=== PATIENT | male | born 1985 | race Caucasian/White ===

== ENCOUNTER 2020-09-02 08:00 | Emergency (ER) | payer OTHER ==
[~2020-09-02] VITALS: Ht 180.3 cm; Wt 104.3 kg
--- NOTE | 2020-09-02 08:04 | NUR ---
[facility] AND [employer] C/O L WRIST PAIN. TO ER BED 11, HOOKED TO MONITOR. AWAITING MD CARLSON
--- NOTE | 2020-09-02 08:06 | NUR ---
DR MEDELLIN AT BEDSIDE
--- NOTE | 2020-09-02 09:01 | NUR ---
Patient discharged in custody of [employer] Officers Nico and Floyd of [place] in stable condition. Written and verbal after care instructions given. Patient and [employer] Officers verbalizes understanding of instruction.
[2020-09-02 09:03] VITALS: BP 127/80
== END 2020-09-02 09:03 ==
LOC: ER 08:03
DX: S62.390A Other fracture of second metacarpal bone, right hand, initial encounter for closed fracture (principal); I10 Essential (primary) hypertension; F10.10 Alcohol abuse, uncomplicated; F17.200 Nicotine dependence, unspecified, uncomplicated; Z90.89 Acquired absence of other organs; Z98.890 Other specified postprocedural states; Z60.2 Problems related to living alone; Y90.9 Presence of alcohol in blood, level not specified; X58.XXXA Exposure to other specified factors, initial encounter; Y93.89 Activity, other specified; Y92.89 Other specified places as the place of occurrence of the external cause; Y99.8 Other external cause status
CPT/HCPCS: 73110

== ENCOUNTER 2020-12-07 15:23 | Emergency (ER) | payer OTHER ==
[~2020-12-07] VITALS: Ht 177.8 cm; Wt 102.1 kg
[2020-12-07 15:33] VITALS: BP 141/93
--- NOTE | 2020-12-07 15:54 | NUR ---
patient left accompanied by [employer] in no distress.
== END 2020-12-07 15:54 ==
LOC: ER 15:27
DX: Z02.89 Encounter for other administrative examinations (principal); R09.81 Nasal congestion; I10 Essential (primary) hypertension; F17.200 Nicotine dependence, unspecified, uncomplicated; Z98.890 Other specified postprocedural states; Z60.2 Problems related to living alone